=== PATIENT | female | born 1975 | race Caucasian/White ===

== ENCOUNTER 2021-02-18 22:51 | Emergency (ER) | payer OTHER ==
[~2021-02-18] VITALS: Ht 175.3 cm; Wt 90.7 kg
--- NOTE | ~2021-02-18 | EMS ---
[address] [address] EMS Patient Care Report Name: ANTONIO PEREZ Room: [facility]#: [id number] Admission: 02/18/21 Attend Phys: Discharge: 02/19/21 Date of : 73 Report #: [id number] THIS REPORT FOR: //name// Report Transmitted: 02/19/2021 16:29 EMS Care Summary [facility] Incident [id number] @ 02/18/2021 21:48 Incident Location [address] [place] [address] Patient ANTONIO PEREZ Female, 45 Years 1975 Patient Address [address] [place] [address] Patient History Hypertension (HTN),Chronic Pain, Patient Allergies Sulfa,Other drug allergy,Amoxicillin,Demerol, Patient Medications Labetalol, Meloxicam, Chief Complaint My back began to hurt Disposition Transported No Lights/[place] Dispatch Reason Back Pain (Non-Traumatic) Transported To [facility] Narrative Med 1 response requested to for a female with upper back pain. Med 1 copied the call and began our response to the scene. We arrived after without incident. We were met at the ambulance by fire with a brief report on the situation. [address] [address] EMS Patient Care Report Name: ANTONIO PEREZ Room: [facility]#: [id number] Admission: 02/18/21 Attend Phys: Discharge: 02/19/21 Date of : 73 Report #: [id number] Inside the residence we located a female laying supine in her bed. She's alert with a GCS of 15. She stated that around 2200 she was sitting up on the couch watching TV when she began to have upper back pain. She got up to use the restroom where she became nauseated but did not vomit. She went and tried to lay down but the pain increased. She advised it felt as though she pulled a muscle. She denied any heavy lifting or over working herself. She denied falls or other possible trauma. She had not tried anything at home to ease her pain. Her wanted to drive her to the ER but she advised she'd get in faster if she went by ambulance. Patient denied any fainting or dizziness. She had no shortness of air. She was able to get up from her supine position in bed without any difficulty or added distress. She had a seat on the cot where she was covered and secured. She was taken to the ambulance and placed inside. Vitals were monitored. ECG 12 lead obtained. IV access obtained in the right hand on the second attempt. She was given 4 MG IV Zofran followed by 30 MG Toradol. We transported non emergent to [facility] for evaluation. Patient rested on the cot during transport. She advised that her pain in her back decreased slightly. Vitals were monitored. Report was called in to the ER via med radio. Upon arrival to the ER patient was taken inside and to ER 16. Patient was assisted from the cot to sit on the ER bed while report was given. Signatures were obtained and care was transferred. Med 1 cleared to return to service. Initial Vitals @22:20P: 82,R: 22,BP: 208/86,Pain: 10/10,GCS: 15,Temp: 97.3F,SpO2: 100,Revised Trauma: 12, @22:07P: 76,R: 16,BP: 198/90,Pain: 6/10,GCS: 15,SpO2: 100,Revised Trauma: 12, @22:20P: 71,R: 18,BP: 190/90,GCS: 15,Glucose: 98,SpO2: 98,Revised Trauma: 12, @22:26P: 77,R: 16,BP: 198/106,Pain: 6/10,GCS: 15,SpO2: 100,Revised Trauma: 12, @22:48P: 76,R: 18,BP: 178/90,Pain: 4/10,GCS: 15,SpO2: 98,Revised Trauma: 12, @22:38P: 78,R: 18,BP: 181/96,Pain: 4/10,GCS: 15,SpO2: 100,Revised Trauma: 12, Assessments @22:10MENTAL:Person Oriented,Place Oriented,Time Oriented,Event Oriented,SKIN:Cold,HEENT:LUNG SOUNDS:General: Nausea,ABDOMEN:General: Nausea,PELVIS//GI:EXTREMITIES:PULSE:NEURO:@22:40MENTAL:Time Oriented,Event Oriented,Place Oriented,Person Oriented,SKIN:HEENT:LUNG SOUNDS:ABDOMEN:PELVIS//GI:EXTREMITIES:PULSE:NEURO: Impression Back Pain Procedures @22:07ALS AssessmentResponse: UnchangedSucceeded@22:30Saline Lock 10cc (22 ga) [place] [address] EMS Patient Care Report Name: ANTONIO PEREZ Room: [facility]#: [id number] Admission: 02/18/21 Attend Phys: Discharge: 02/19/21 Date of : 73 Report #: [id number] Site: Hand-RightResponse: UnchangedSucceeded@22:32Zofran - 4 Milligrams (mg) - Intravenous (IV)Response: Improved@22:33Toradol - 30 Milligrams (mg) - Intravenous (IV)Response: Improved@22:2012-Lead ECGResponse: UnchangedSucceeded@22:2612-Lead ECGResponse: UnchangedSucceeded@22:16Surgical Mask on PatientResponse: Unchanged Timeline 21:47,Call Received 21:48,Dispatched 21:50,En Route 22:06,On Scene 22:07,At Patient 22:07,ALS Assessment,Response: UnchangedSucceeded, 22:07,BP: 198/90 M,PULSE: 76,RR: 16 R,SPO2: 100 Ox,ETCO2: ,BG: ,PAIN: 6,GCS: 15, 22:16,Surgical Mask on Patient,Response: Unchanged 22:20,12-Lead ECG,Response: UnchangedSucceeded, 22:20,BP: 190/90 M,PULSE: 71,RR: 18 R,SPO2: 98 Ox,ETCO2: ,B,PAIN: ,GCS: 15, 22:20,BP: 208/86 M,PULSE: 82,RR: 22 R,SPO2: 100 Ox,ETCO2: ,BG: ,PAIN: 10,GCS: 15, 22:26,12-Lead ECG,Response: UnchangedSucceeded, 22:26,BP: 198/106 M,PULSE: 77,RR: 16 R,SPO2: 100 Ox,ETCO2: ,BG: ,PAIN: 6,GCS: 15, 22:27,Depart Scene 22:30,Saline Lock 10cc 22 ga Site: Hand-Right,Response: UnchangedSucceeded, 22:32,Zofran - 4 Milligrams (mg) - Intravenous (IV),Response: Improved 22:33,Toradol - 30 Milligrams (mg) - Intravenous (IV),Response: Improved 22:38,BP: 181/96 M,PULSE: 78,RR: 18 R,SPO2: 100 Ox,ETCO2: ,BG: ,PAIN: 4,GCS: 15, 22:48,BP: 178/90 M,PULSE: 76,RR: 18 R,SPO2: 98 Ox,ETCO2: ,BG: ,PAIN: 4,GCS: 15, 22:49,At Destination 23:30,Call Closed Disclaimer v1.1 Copyright 2020 [employer] This EMS Care Summary contains data elements from the applicable legal record (which may be displayed differently). It is designed to provide pertinent information for the following purposes: continuity of care, clinical quality, and state data reporting. The complete legal record is available to ED staff and administrators of the receiving hospital in [employer]'s Patient Tracker. All data is provided "as is."
[2021-02-18] MEDS ORDERED: LABETALOL (23:04)
[2021-02-18] MEDS ORDERED: MELOXICAM (23:05)
[2021-02-18] MEDS ORDERED: CETIRIZINE (23:06)
[2021-02-18 23:23] LABS: ABSOLUTE BASOPHILS 0.1 thou/uL (0.0-0.2); ABSOLUTE EOSINOPHILS 0.1 thou/uL (0.0-0.7); ABSOLUTE LYMPHOCYTES 2.2 thou/uL (0.8-5.3); ABSOLUTE MONOCYTES 0.3 thou/uL (0.0-1.2); ABSOLUTE NEUTROPHILS 3.9 thou/uL (1.6-8.1); BASOPHILS 0.8 %; EOSINOPHILS 1.7 %; HEMATOCRIT 39.1 % (37.0-47.0); LYMPHOCYTES 33.1 %; MCH 29.4 pg (26.0-34.0); MCHC 33.1 g/dL (28.0-37.0); MCV 88.8 fL (80.0-100.0); MONOCYTES 4.8 %; MPV 9.2 fl. (7.2-11.1); NUCLEATED RBCS 0 /100WBC; PLATELET COUNT* 149 thou/uL (150-400); POLYS 59.6 %; RDW-CV 15.6 % (10.5-14.5); WBC 6.6 thou/uL (4.0-11.0)
[2021-02-18 23:31] LABS: CALCIUM 8.5 mg/dL (8.5-10.1)
[2021-02-18 23:36] LABS: ALBUMIN 4.1 g/dL (3.4-5.0); TOTAL BILIRUBIN 0.4 mg/dL (<0.1-1.0); TOTAL PROTEIN 6.7 g/dL (6.4-8.2)
[2021-02-18 23:55] LABS: INR 1.1; PROTIME 11.4 Seconds (9.20-11.50)
[2021-02-19 03:56] LABS: URINE BILIRUBIN NEGATIVE (Negative); URINE BLOOD NEGATIVE (Negative); URINE CLARITY CLEAR; URINE COLOR YELLOW; URINE GLUCOSE-RANDOM NEGATIVE (Negative); URINE KETONES NEGATIVE (Negative); URINE LEUKOCYTES-REFLEX NEGATIVE (Negative); URINE NITRITE-REFLEX NEGATIVE (Negative); URINE PROTEIN NEGATIVE (Negative); URINE SPECIFIC GRAVITY <= 1.005 (1.005-1.030); URINE UROBILINOGEN 0.2 E.U./dl (0.2-1.0)
[2021-02-19 07:15] VITALS: BP 172/102
--- NOTE | 2021-02-19 12:20 | EKG ---
[place] [address] ELECTROCARDIOGRAM REPORT Name: ANTONIO PEREZ Room: [facility]#: [id number] Admission: 02/18/21 Attend Phys: Discharge: 02/19/21 Date of : 73 Date of Service: 02/18/212249 Report #: [id number] THIS REPORT FOR: //name// [facility] ED Test Date: 2021-02-18 Test Time: 22:50:25 Pat Name: ANTONIO PEREZ Department: Room: Gender: Industrial Nurse: [place] : 1975 Requested By: Karin Laurent Order Number: [id number] MD: Blanco Olivas Measurements Intervals [facility] Rate: 72 P: 17 GA: 155 QRS: 0 QRSD: 89 T: -7 QT: 447 QTc: 493 Interpretive Statements Sinus rhythm LVH by voltage Borderline T abnormalities, inferior leads Borderline prolonged QT interval No previous ECG available for comparison Electronically Signed On 02-19-2021 12:20:25 CDT by Blanco Olivas [email or web address] <ELECTRONICALLY SIGNED> By: Blanco Olivas MD, [facility] 02/19/21 1220 2250 225 Blanco Olivas MD, [facility] /EPI
== END 2021-02-19 07:15 | disposition short-term general hospital (02) ==
LOC: M.ERS 22:51
PROVIDERS: Emergency Medicine
DX: I71.01 Dissection of thoracic aorta (principal); Z20.822 Contact with and (suspected) exposure to COVID-19; I10 Essential (primary) hypertension; Z79.899 Other long term (current) drug therapy; Z88.1 Allergy status to other antibiotic agents; Z88.2 Allergy status to sulfonamides; Z88.8 Allergy status to other drugs, medicaments and biological substances